=== PATIENT | female | born 1960 | race Native Hawaiian/Other Pacific Islander ===

== ENCOUNTER 2016-06-01 11:01 | Outpatient (CLI) | payer BC | END 2016-06-01 19:22 | disposition home or self-care (01) | LOC: RAD 11:01 | DX: M25.562 Pain in left knee (principal) ==

== ENCOUNTER 2016-09-07 13:24 | Outpatient (CLI) | payer BC | END 2016-09-07 14:30 | disposition home or self-care (01) | LOC: RAD 13:24 | DX: M17.12 Unilateral primary osteoarthritis, left knee (principal) ==

== ENCOUNTER 2016-09-30 08:28 | Outpatient (CLI) | payer BC | END 2016-09-30 19:10 | disposition home or self-care (01) | LOC: NM 08:28 | DX: M17.12 Unilateral primary osteoarthritis, left knee (principal) | CPT/HCPCS: A9561 ==

== ENCOUNTER 2018-07-25 14:53 | Outpatient (CLI) | payer BC | END 2018-07-25 22:48 | disposition home or self-care (01) | LOC: RAD 14:53 | DX: M25.562 Pain in left knee (principal) ==

== ENCOUNTER 2018-08-11 09:42 | Outpatient (CLI) | payer BC | END 2018-08-11 19:17 | disposition home or self-care (01) | LOC: NM 09:42 | DX: Z96.652 Presence of left artificial knee joint (principal) | CPT/HCPCS: A9561 ==

== ENCOUNTER 2020-07-16 23:12 | Emergency (ER) | payer BC ==
[~2020-07-16] VITALS: Ht 162.6 cm; Wt 108.9 kg
[2020-07-17 00:43] LABS: PLATELET COUNT 179 K/uL (152-353)
[2020-07-17 01:13] VITALS: BP 150/59; TEMP 97.8
== END 2020-07-17 01:13 | disposition home or self-care (01) ==
LOC: ED 23:12
PROVIDERS: Family Medicine
DX: S10.86XA Insect bite of other specified part of neck, initial encounter (principal); L03.221 Cellulitis of neck; W57.XXXA Bitten or stung by nonvenomous insect and other nonvenomous arthropods, initial encounter; Y93.89 Activity, other specified; Y92.89 Other specified places as the place of occurrence of the external cause
CPT/HCPCS: 36415; 80053; 85027; 96372; 99283; J2930

== ENCOUNTER 2022-09-08 11:26 | Outpatient (CLI) | payer BC | END 2022-09-08 20:35 | disposition home or self-care (01) | LOC: US 11:26 | PROVIDERS: ATTEND Internal Medicine | DX: N61.0 Mastitis without abscess (principal) ==